=== PATIENT | female | born 1960 | race African-American/Black ===

== ENCOUNTER 2019-10-11 19:07 | Emergency (ER) | payer MEDICAID ==
[~2019-10-11] VITALS: Ht 165.1 cm; Wt 88.6 kg
[2019-10-11 19:18] VITALS: Ht 165.1 cm; Wt 88.6 kg
[2019-10-11] MEDS ORDERED: BLOOD PRESSURE (19:19)
[2019-10-11] MEDS ORDERED: "\\\"WATER PILL\\\"" (19:19)
[2019-10-11 19:51] LABS: BASOPHILS 0.7 % (0-2); EOSINOPHILS 4.2 % (0-7); HEMATOCRIT 39.3 % (36.0-48.0); HEMOGLOBIN 12.9 g/dL (12-16); IMMATURE GRANULOCYTES 0.4 % (0-5); LYMPHOCYTES 36.2 % (15-50); MCH 29.5 pg (26.0-34.0); MCHC 32.8 g/dL (31.0-37.0); MCV 89.9 fL (80.0-100.0); MEAN PLATELET VOLUME 9.8 fL (7.4-10.4); NEUTROPHILS 50.5 % (40-80); PLATELET COUNT 257 10x3/uL (130-400); RBC 4.37 10x6/uL (4.00-5.40); RDW 13.4 % (11.5-14.5); WBC 9.8 10x3/uL (4.8-10.8)
[2019-10-11 20:12] LABS: ANION GAP 15.4 mmol/L (8-16); CARBON DIOXIDE 25.5 mmol/L (21.0-32.0); POTASSIUM - SERUM 3.9 mmol/L (3.5-5.1)
[2019-10-11 20:18] LABS: ALBUMIN 3.7 g/dL (3.4-5.0); BILIRUBIN - TOTAL 0.31 mg/dL (0.2-1.3); PROTEIN - SERUM 7.3 g/dL (6.4-8.2)
[2019-10-11] MEDS ORDERED: COLCRYS0.6 MG PO (20:45)
[2019-10-11] MEDS ORDERED: ULTRAM50 MG PO (20:45)
[2019-10-11] MEDS ORDERED: PREDNISONE10 MG PO (20:45)
[2019-10-11 20:58] VITALS: BP 142/81
== END 2019-10-11 21:00 | disposition home or self-care (01) ==
LOC: D.ER 19:07
PROVIDERS: Emergency Medicine
DX: M10.9 Gout, unspecified (principal); I10 Essential (primary) hypertension